=== PATIENT | male | born 1945 | race Caucasian/White ===

== ENCOUNTER 2017-12-18 19:06 | Emergency (ER) | payer MEDICARE, BC ==
[2017-12-18 19:27] LABS: ADD MAN DIFF? NO
[2017-12-18 19:29] LABS: BASO # 0.1 x10^3/uL (0.0-0.2); BASO % 1 % (0-3); EOS # 0.7 x10^3/uL (0.0-0.7); EOS % 9 % (0-3); HEMATOCRIT 42.7 % (39.0-53.0); HEMOGLOBIN 14.5 g/dL (13.0-17.5); LYMPH # 1.3 x10^3/uL (1.0-4.8); LYMPH % 16 % (24-48); MEAN CORPUSCULAR HEMOGLOBIN 29 pg (25-35); MEAN CORPUSCULAR HGB CONC 34 g/dL (31-37); MEAN CORPUSCULAR VOLUME 86 fL (79-100); MONO % 12 % (0-9); NEUT # 5.3 x10^3uL (1.8-7.7); NEUT % 63 % (31-73); PLATELET COUNT 246 x10^3/uL (140-400); RED BLOOD COUNT 4.99 x10^6/uL (4.30-5.70); RED CELL DISTRIBUTION WIDTH 14.7 % (11.5-14.5); WHITE BLOOD COUNT 8.3 x10^3/uL (4.0-11.0)
[2017-12-18 19:45] LABS: ANION GAP 10 (6-14); BLOOD UREA NITROGEN 13 mg/dL (8-26); BUN/CREATININE RATIO 12 (6-20); CALCIUM 8.8 mg/dL (8.5-10.1); CARBON DIOXIDE 25 mmol/L (21-32); CHLORIDE 101 mmol/L (98-107); CREATININE 1.1 mg/dL (0.7-1.3); GFR 65.8; GLUCOSE 118 mg/dL (70-99); POTASSIUM 4.1 mmol/L (3.5-5.1); SODIUM 136 mmol/L (136-145)
[2017-12-18 19:49] LABS: ALBUMIN 3.6 g/dL (3.4-5.0); ALBUMIN/GLOBULIN RATIO 0.8 (1.0-1.7); ALK PHOS 100 U/L (46-116); ALT (SGPT) 19 U/L (16-63); AST (SGOT) 18 U/L (15-37); TOTAL BILIRUBIN 0.5 mg/dL (0.2-1.0)
[2017-12-18 19:50] LABS: TROPONINI < 0.017 ng/mL (0.000-0.055)
[2017-12-18 22:13] LABS: TROPONINI < 0.017 ng/mL (0.000-0.055)
== END 2017-12-18 22:30 | disposition home or self-care (01) ==
LOC: ER 19:06
DX: R07.89 Other chest pain (principal); I25.10 Atherosclerotic heart disease of native coronary artery without angina pectoris; Z95.5 Presence of coronary angioplasty implant and graft
CPT/HCPCS: 36415; 71045; 80053; 84484; 85025; 93005; 99285-25

== ENCOUNTER 2018-07-03 20:28 | Emergency (ER) | payer MEDICARE, BC ==
[~2018-07-03] VITALS: Ht 188 cm; Wt 99.8 kg
--- NOTE | 2018-07-03 21:51 | EKG ---
[facility] [address] [place] [address] Test Date: 2018-07-03 Test Time: 20:36:13 Pat Name: TITI LANGE Department: Room: Gender: M Public Information Officer: ASNTOS : 1945 Requested By: SAMI TOVAR Order Number: [id number] Reading MD: Measurements Intervals [place] Rate: 64 P: -159 [place]: 154 QRS: -26 QRSD: 110 T: 27 QT: 414 QTc: 427 Interpretive Statements SINUS RHYTHM LEFTWARD AXIS R-S TRANSITION ZONE IN V LEADS DISPLACED TO THE LEFT OTHERWISE NORMAL ECG RI6.01 No previous ECG available for comparison
--- NOTE | 2018-07-03 22:04 | RAD ---
AP chest. HISTORY: Chest pain AP view was taken of the chest. There is a large hiatus hernia. Heart is upper normal in size. There is no pleural effusion. There are no confluent infiltrates. There is been little change from an old study. IMPRESSION: 1. Large hiatus hernia. 2. No acute infiltrates. Electronically signed by: Todd Osman MD (07/03/2018 10:00 PM) [facility]
[2018-07-03 22:09] LABS: BASO % 1 % (0-3); EOS # 0.5 x10^3/uL (0.0-0.7); EOS % 11 % (0-3); HEMATOCRIT 41.2 % (39.0-53.0); HEMOGLOBIN 14.2 g/dL (13.0-17.5); LYMPH # 0.7 x10^3/uL (1.0-4.8); LYMPH % 13 % (24-48); MEAN CORPUSCULAR HEMOGLOBIN 30 pg (25-35); MEAN CORPUSCULAR HGB CONC 35 g/dL (31-37); MEAN CORPUSCULAR VOLUME 88 fL (79-100); MONO # 0.4 x10^3/uL (0.0-1.1); MONO % 8 % (0-9); NEUT # 3.2 x10^3uL (1.8-7.7); NEUT % 66 % (31-73); PLATELET COUNT 239 x10^3/uL (140-400); RED CELL DISTRIBUTION WIDTH 15.2 % (11.5-14.5); WHITE BLOOD COUNT 4.9 x10^3/uL (4.0-11.0)
[2018-07-03 22:23] LABS: CALCIUM 8.7 mg/dL (8.5-10.1); CREATININE 1.1 mg/dL (0.7-1.3); GFR 65.8; POTASSIUM 4.1 mmol/L (3.5-5.1)
[2018-07-03 22:28] LABS: ALBUMIN 3.6 g/dL (3.4-5.0); ALBUMIN/GLOBULIN RATIO 1.1 (1.0-1.7); TOTAL BILIRUBIN 0.5 mg/dL (0.2-1.0); TOTAL PROTEIN 6.9 g/dL (6.4-8.2)
--- NOTE | 2018-07-03 22:40 | PHYS DOC ---
Past Medical History Past Medical History: CAD, High Cholesterol Past Surgical History: Knee Replacement, Other Additional Past Surgical Histo: cardiac stents X3 Alcohol Use: Heavy Additional Information: GLASS OF WINE PER DAY Drug Use: None Adult General Chief Complaint Chief Complaint: CHEST PAIN HPI HPI Patient is a 72-year-old male who presents with report that he was having chest pain earlier this evening. Patient had been eating dinner at about 6:00 PM after which she had developed some burning in his lower chest. He states that he had taken an aspirin prior to arrival and the pain had lasted approximately an hour and a half. He denies any pain currently. He states that he had no shortness of breath, nausea, vomiting or diaphoresis. Pain is currently a 0 and at its worse it was a 5 out of 10. He describes the pain as a burning pain and states that he was wondering if it was just heartburn. He does indicate that he has a cardiac history with a history of 3 cardiac stents. He states that he had a similar episode several months back and had a cardiac workup which had returned normal. His services host is Dr. Mathis. Review of Systems Review of Systems Constitutional: Denies fever or chills [] Respiratory: Denies cough or shortness of breath [] Cardiovascular: Complains of burning pain to lower chest[] GI: Denies abdominal pain, nausea, vomiting or diarrhea [] Musculoskeletal: Denies back pain or joint pain [] All other systems were reviewed and found to be within normal limits, except as documented in this note. Allergies Allergies Allergies Coded Allergies Type Severity Reaction Last Updated Verified No Known Drug Allergies 12/18/17 No Physical Exam Physical Exam Constitutional: Well developed, well nourished, no acute distress, non-toxic appearance. [] HENT: Normocephalic, atraumatic, bilateral external ears normal, oropharynx moist, no oral exudates, nose normal. [] Eyes: PERRLA, EOMI, conjunctiva normal, no discharge. [] Neck: Normal range of motion, no tenderness, supple, no stridor. [] Cardiovascular:Heart rate regular rhythm, no murmur [] Lungs & Thorax: Bilateral breath sounds clear to auscultation [] Abdomen: Bowel sounds normal, soft, no tenderness. [] Skin: Warm, dry, no erythema, no rash. [] Extremities: No tenderness, no cyanosis, no clubbing, ROM intact, no edema. [] Neurologic: Alert and oriented X 3, normal motor function, normal sensory function, no focal deficits noted. [] Current Patient Data Vital Signs Vital Signs Date Time Temp Pulse Resp B/P (MAP) Pulse Ox O2 Delivery O2 Flow Rate FiO2 07/03/18 20:45 98.6 64 18 122/75 (91) 94 Room Air 98.6 Lab Values Laboratory Tests Test 07/03/18 21:45 White Blood Count 4.9 x10^3/uL (4.0-11.0) Red Blood Count 4.70 x10^6/uL (4.30-5.70) Hemoglobin 14.2 g/dL (13.0-17.5) Hematocrit 41.2 % (39.0-53.0) Mean Corpuscular Volume 88 fL (79-100) Mean Corpuscular Hemoglobin 30 pg (25-35) Mean Corpuscular Hemoglobin Concent 35 g/dL (31-37) Red Cell Distribution Width 15.2 % (11.5-14.5) H Platelet Count 239 x10^3/uL (140-400) Neutrophils (%) (Auto) 66 % (31-73) Lymphocytes (%) (Auto) 13 % (24-48) L Monocytes (%) (Auto) 8 % (0-9) Eosinophils (%) (Auto) 11 % (0-3) H Basophils (%) (Auto) 1 % (0-3) Neutrophils # (Auto) 3.2 x10^3uL (1.8-7.7) Lymphocytes # (Auto) 0.7 x10^3/uL (1.0-4.8) L Monocytes # (Auto) 0.4 x10^3/uL (0.0-1.1) Eosinophils # (Auto) 0.5 x10^3/uL (0.0-0.7) Basophils # (Auto) 0.0 x10^3/uL (0.0-0.2) Sodium Level 137 mmol/L (136-145) Potassium Level 4.1 mmol/L (3.5-5.1) Chloride Level 105 mmol/L (98-107) Carbon Dioxide Level 26 mmol/L (21-32) Anion Gap 6 (6-14) Blood Urea Nitrogen 14 mg/dL (8-26) Creatinine 1.1 mg/dL (0.7-1.3) Estimated GFR (Cockcroft-Gault) 65.8 BUN/Creatinine Ratio 13 (6-20) Glucose Level 146 mg/dL (70-99) H Calcium Level 8.7 mg/dL (8.5-10.1) Magnesium Level 2.0 mg/dL (1.8-2.4) Total Bilirubin 0.5 mg/dL (0.2-1.0) Aspartate Amino Transferase (AST) 16 U/L (15-37) Alanine Aminotransferase (ALT) 23 U/L (16-63) Alkaline Phosphatase 83 U/L (46-116) Troponin I Quantitative < 0.017 ng/mL (0.000-0.055) Total Protein 6.9 g/dL (6.4-8.2) Albumin 3.6 g/dL (3.4-5.0) Albumin/Globulin Ratio 1.1 (1.0-1.7) Lipase 112 U/L (73-393) Laboratory Tests 07/03/18 21:45 Laboratory Tests 07/03/18 21:45 EKG EKG [] Interpretation Time: EKG demonstrates a normal sinus rhythm with rate of 64. Radiology/Procedures Radiology/Procedures [] Impressions: Chest x-ray demonstrates no acute process. There is a large hiatal hernia. Course & Med Decision Making Course & Med Decision Making Pertinent Labs and Imaging studies reviewed. (See chart for details) [] Dragon Disclaimer Dragon Disclaimer This electronic medical record was generated, in whole or in part, using a voice recognition dictation system. Departure Departure Impression: Primary Impression: GERD (gastroesophageal reflux disease) Disposition: 01 HOME, SELF-CARE Condition: STABLE Referrals: DAVID VIGIL MD (PCP) Patient Instructions: Heartburn, Hiatal Hernia Additional Instructions: Follow-up with Dr. Mathis in the next 3-5 days. Problem Qualifiers Primary Impression: GERD (gastroesophageal reflux disease) Esophagitis presence: esophagitis presence not specified Qualified Codes: K21.9 - Gastro-esophageal reflux disease without esophagitis SAMI TOVAR Jr. DO Jul 03, 2018 22:40
[2018-07-03 22:53] VITALS: BP 109/74
== END 2018-07-03 22:54 | disposition home or self-care (01) ==
LOC: ER 20:28
DX: K21.9 Gastro-esophageal reflux disease without esophagitis (principal); E78.00 Pure hypercholesterolemia, unspecified; I25.10 Atherosclerotic heart disease of native coronary artery without angina pectoris; F10.20 Alcohol dependence, uncomplicated; Y90.9 Presence of alcohol in blood, level not specified
CPT/HCPCS: 36415; 71045; 80053; 83690; 83735; 84484; 85025; 93005; 99285-25

== ENCOUNTER → 2019-05-27 | Day surgery (SDC) | payer MEDICARE, BC ==
[~2019-05-27] MED LIST: ASPI81TA50 PO; CARV3.12 PO; ENAL20TA4 PO; IV RINGERS,LACTATED 1000ML 1,000 ML IV SCH; LIDOCAINE 1% PF 2 ML VIAL. ID PRN; LIDOCAINE 2% PF 5 ML VIAL. ONE; MIDAZOLAM HCL/PF 2 MG/2 ML VIAL. IV PRN; OMEG-57 PO; OMEP40CA5 PO; PROPOFOL 20 ML IV ONE; SIMV40TA PO; TAMS0.4C97 PO; fentaNYL PF VIAL 100 MCG/2 ML VIAL IV PRN
[2019-05-27 11:50] VITALS: BP 109/72
== END ==
LOC: ENDOS 10:28
PROVIDERS: ATTEND Internal Medicine Gastroenterology
DX: K22.2 Esophageal obstruction (principal); K44.9 Diaphragmatic hernia without obstruction or gangrene; I25.2 Old myocardial infarction; I25.10 Atherosclerotic heart disease of native coronary artery without angina pectoris; K21.9 Gastro-esophageal reflux disease without esophagitis; D64.9 Anemia, unspecified; I50.9 Heart failure, unspecified; E78.5 Hyperlipidemia, unspecified; F15.90 Other stimulant use, unspecified, uncomplicated; F17.210 Nicotine dependence, cigarettes, uncomplicated; Z72.89 Other problems related to lifestyle; Z79.82 Long term (current) use of aspirin
CPT/HCPCS: 43235; 43450; J2001; J2704

== ENCOUNTER → 2019-06-08 | Outpatient (CLI) | payer MEDICARE, BC ==
[2019-05-27 11:50] VITALS: BP 109/72
[~2019-06-08] MED LIST changes: +BARIUM SULFATE 340 GM SUSPENSION. PO ONE; +BARIUM SULFATE 60% 355 ML SUSP PO ONE; -IV RINGERS,LACTATED 1000ML 1,000 ML IV SCH; -LIDOCAINE 1% PF 2 ML VIAL. ID PRN; -LIDOCAINE 2% PF 5 ML VIAL. ONE; -MIDAZOLAM HCL/PF 2 MG/2 ML VIAL. IV PRN; -PROPOFOL 20 ML IV ONE; +SIMETHICONE/SOD BICARB/CITRIC ACID PACKET. PO ONE; +[UNRECOGNIZED DRUG - OTHER] PO ONE; -fentaNYL PF VIAL 100 MCG/2 ML VIAL IV PRN
--- NOTE | 2019-06-08 10:34 | RAD ---
Indication: Dysphagia. Feels like food is getting stuck. TECHNIQUE: Double contrast upper GI study with 2.5 minutes of fluoroscopy time. Effervescent granules were used. Multiple images were taken. COMPARISON: None IMPRESSION: The presentation manager images demonstrate clear lungs. Abnormal orientation of the stomach is noted which is partially in the thorax. Prompt opacification of the esophagus with passage of contrast through the GE junction is seen. There is herniation of the entire stomach into the thorax with abnormal orientation. Passage of contrast was seen into the duodenum. IMPRESSION: Large hiatal hernia containing entire stomach with abnormal orientation of stomach suggesting gastric volvulus. No real-time evidence of gastric outlet obstruction. Surgical consultation recommended. Electronically signed by: Jose Elias Cazares DO (06/08/2019 10:31 AM) [facility]
== END | disposition home or self-care (01) ==
LOC: RAD 08:53
PROVIDERS: ATTEND Internal Medicine Gastroenterology
DX: K44.9 Diaphragmatic hernia without obstruction or gangrene (principal); K22.8 Other specified diseases of esophagus
CPT/HCPCS: 74240

== ENCOUNTER → 2019-06-16 | Outpatient (CLI) | payer MEDICARE, BC ==
[2018-07-03 22:53] VITALS: BP_SYST 109
[2019-05-27 11:50] VITALS: BP_DIAS 72
[~2019-06-16] MED LIST changes: -BARIUM SULFATE 340 GM SUSPENSION. PO ONE; -BARIUM SULFATE 60% 355 ML SUSP PO ONE; -SIMETHICONE/SOD BICARB/CITRIC ACID PACKET. PO ONE; -[UNRECOGNIZED DRUG - OTHER] PO ONE
--- NOTE | 2019-06-16 09:43 | CARD ---
MR#: [id number] Date of Study: 06/16/2019 Ordering Physician: PEDRO IGLESIAS, Referring Physician: PEDRO IGLESIAS, Tech: Noemi Buckley BERYL APPROVED REPORT EXAM: Two-dimensional and M-mode echocardiogram with Doppler and color Doppler. Other Information Quality : AverageHR: 55bpm Rhythm : Bradycardia INDICATION CAD 2D DIMENSIONS RVDd3.4 (2.9-3.5cm)Left Atrium(2D)4.4 (1.6-4.0cm) IVSd1.2 (0.7-1.1cm)Aortic Root(2D)3.6 (2.0-3.7cm) LVDd4.4 (3.9-5.9cm)LVOT Diameter2.5 (1.8-2.4cm) PWd1.0 (0.7-1.1cm)LVDs3.0 (2.5-4.0cm) FS (%) 31.6 %SV52.4 ml LVEF(%)59.8 (>50%) M-Mode DIMENSIONS Left Atrium(MM)4.52 (2.5-4.0cm)Aortic Root3.59 (2.2-3.7cm) Aortic Valve AoV Peak Justino.144.8cm/sAoV VTI30.9cm AO Peak GR.8.4mmHgLVOT Peak Justino.107.3cm/s AO Mean GR.5mmHgAVA (VMAX)3.73cm2 IVANNA (VTI)3.70cm2 Mitral Valve MV E Eiupnvqx11.9cm/sMV DECEL [id number] MV A Bgwerqbq76.2cm/sE/A Ratio0.9 Pulmonary Valve PV Peak Wkxauoyx29.9cm/s Tricuspid Valve TR P. Saoqeexz351fb/sRAP OLUNYHQW5zkVv TR Peak Gr.00seSaBTER82veZv Pulmonary Vein S1 Gbmkiftb74.0cm/sD2 Fanhemft19.1cm/s PVa [id number] LEFT VENTRICLE The left ventricle is normal size. Proximal septal thickening is noted. The left ventricular systolic function is normal and the ejection fraction is within normal range. The Ejection Fraction is 55-60% . There is normal LV segmental wall motion. Transmitral Doppler flow pattern is Grade I-abnormal rela xation pattern. RIGHT VENTRICLE The right ventricle is normal size. There is normal right ventricular wall thickness. The right ventr icular systolic function is normal. ATRIA The left atrium is mildly dilated. The right atrium is mildly dilated. The interatrial septum is inta ct with no evidence for an atrial septal defect or patent foramen ovale as noted on 2-D or Doppler im aging. AORTIC VALVE The aortic valve is trileaflet. The aortic valve is mildly thickened but opens well. Doppler and [place] r Flow revealed trace aortic regurgitation. There is no significant aortic valvular stenosis. There i s no aortic valvular vegetation. MITRAL VALVE The mitral valve is normal in structure and function. There is no evidence of mitral valve prolapse. There is no mitral valve stenosis. Doppler and Color Flow revealed no mitral valve regurgitation note d. TRICUSPID VALVE The tricuspid valve is normal in structure and function. Doppler and Color Flow revealed trace tricus pid regurgitation. The PA pressure was estimated at 24 mmHg. There is no tricuspid valve prolapse or vegetation. There is no tricuspid valve stenosis. PULMONIC VALVE Doppler and Color Flow revealed no pulmonic valvular regurgitation. There is no pulmonic valvular serafin nosis. GREAT VESSELS The aortic root is normal in size. The ascending aorta is normal in size. The IVC is normal in size a nd collapses >50% with inspiration. PERICARDIAL EFFUSION There is no evidence of significant pericardial effusion. Critical Notification Critical Value: No <Conclusion> The left ventricular systolic function is normal and the ejection fraction is within normal range. Th e Ejection Fraction is 55-60%. There is normal LV segmental wall motion. Signed by : Kurt Mackey, Electronically Approved : 06/16/2019 09:43:18
== END | disposition home or self-care (01) ==
LOC: ECHO 08:54
PROVIDERS: ATTEND Internal Medicine Cardiovascular Disease
DX: I25.10 Atherosclerotic heart disease of native coronary artery without angina pectoris (principal)
CPT/HCPCS: 93306

== ENCOUNTER 2019-08-03 05:59 | Inpatient (IN) | payer MEDICARE, BC ==
[2019-08-03] VITALS (12 sets, daily range): BP systolic 116–144; BP diastolic 67–89
[~2019-08-03] VITALS: Ht 188 cm; Wt 103.4 kg
[~2019-08-03 05:59] MED LIST changes: +BUPIVACAINE-EPI 0.5%-1:200000 MPF 30 ML VIAL. INJ ONE; +ENAL2.5T PO
[2019-08-03] MEDS ORDERED: DEXAMETHASONE SOD PHOS 4 MG/ML VIAL ONE (06:16)
[2019-08-03] MEDS ORDERED: PROPOFOL 20 ML IV ONE (06:16)
[2019-08-03] MEDS ORDERED: LIDOCAINE 2% PF 5 ML VIAL. ONE (06:16)
[2019-08-03] MEDS ORDERED: ROCURONIUM 50 MG/5 ML VIAL. ONE ×2 (06:16→08:53)
[2019-08-03] MEDS ORDERED: ONDANSETRON PF 4 MG/2 ML VIAL. ONE (06:16)
[2019-08-03] MEDS ORDERED: DEXAMETHASONE SOD PHOS 20 MG/5 ML VIAL. ONE (06:16)
[2019-08-03] MEDS ORDERED: BUPIVACAINE-EPI 0.5%-1:200000 MPF 30 ML VIAL. INJ ONE (06:30)
[2019-08-03] MEDS ORDERED: LIDOCAINE 1% PF 2 ML VIAL. ID PRN (07:00)
[2019-08-03] MEDS ORDERED: IV RINGERS,LACTATED 1000ML 1,000 ML IV SCH (07:00)
[2019-08-03] MEDS ORDERED: fentaNYL PF VIAL 100 MCG/2 ML VIAL IV PRN ×2 (07:00)
[2019-08-03] MEDS ORDERED: ONDANSETRON PF 4 MG/2 ML VIAL. IV PRN ×2 (07:00→11:15)
[2019-08-03] MEDS ORDERED: HYDROmorphone 2 MG/ML VIAL IV PRN ×2 (07:00→11:15)
[2019-08-03] MEDS ORDERED: MORPHINE SULFATE 2 MG/ML VIAL. IV PRN (07:00)
[2019-08-03] MEDS ORDERED: PROCHLORPERAZINE 10 MG/2 ML VIAL. IV PRN (07:00)
[2019-08-03] MEDS ORDERED: SURGICEL HEMOSTAT 4X8 EACH. ONE (07:01)
[2019-08-03] MEDS ORDERED: fentaNYL PF VIAL 100 MCG/2 ML VIAL ONE ×3 (07:13→10:43)
[2019-08-03] MEDS ORDERED: SUCCINYLCHOLINE 200 MG/10 ML VIAL. ONE (07:16)
[2019-08-03] MEDS ORDERED: ceFAZolin 2GM PREMIX 2 GM/50 ML BAG IV ONE (08:00)
[2019-08-03] MEDS ORDERED: SEVOFLURANE > 120 MINUTES. IH ONE (08:17)
[2019-08-03] MEDS ORDERED: GLYCOPYRROLATE 1 MG/5 ML VIAL. ONE (08:28)
[2019-08-03] MEDS ORDERED: NEOSTIGMINE METHYLSULFATE 5 MG/5 ML SYRINGE. ONE ×2 (08:31→10:43)
[2019-08-03] MEDS ORDERED: IV NORMAL SALINE 1000ML BAG 1,000 ML IV SCH (11:10)
--- NOTE | 2019-08-03 11:10 | PDOC4 ---
Operative Note Operative Note Operative Note Preoperative Diagnosis: Large hiatal hernia with gastroesophageal reflux disease Postoperative Diagnosis: Same Procedure: Laparoscopic repair of large hiatal hernia with Janell fundoplication Surgeon: Juarez Conroy.: Dr. Greenfield Anesthesia: Gen. Estimated Blood Loss: 20 mL Specimen: Hernia sac to pathology Drains: None Complications: None Indications: The patient is a 73-year-old male who was referred following a GI evaluation for problems with eating. The evaluation identified a very large hiatal hernia with some concern for intermittent volvulus. He was referred for surgical repair. The risks of surgery were discussed which include bleeding, infection, recurrent herniation, gastric or esophageal perforation, visceral injury, recurrent reflux, gas bloat syndrome, dysphasia, potential need for additional surgeries or procedures. He understands and would like to proceed. Description: The patient was taken to the operating room and placed supine on the operating table. General anesthesia was performed. The patient was then placed in lithotomy. The abdomen was prepped with ChloraPrep and draped in a standard surgical fashion. A small incision was made superior to and to the patient's left of the umbilicus through which a visualized 5 mm trocar was inserted. A pneumoperitoneum was then created and the laparoscope was introduced. In the right lateral abdomen a 12 mm trocar was inserted through which a soft fan retractor was used to elevate the left lobe of the liver. In the right upper quadrant a 5 mm trocar was inserted. In the left upper quadrant an 11 mm trocar was inserted while in the left lateral abdomen a 5 mm trocar was inserted. Attention was then directed to the diaphragmatic hiatus. As expected there was a very large hiatal hernia defect with much of the stomach present in the chest. A large amount of stomach and omentum was pulled out of the chest and able to be reduced. We then began mobilizing the entire hernia sac within the mediastinum. We started this on the right side and began freeing up the sac from the right gisele. The Harmonic scalpel assisted for much of this dissection. We continued mobilizing the sac superiorly well into the mediastinum. We continued this dissection anteriorly freeing up the sac and its attachments in this location. The dissection then continued along the left gisele and the sac and attachments were mobilized here as well. Due to the large size and redundancy of the sac considerable time was required in freeing this out of the mediastinum. Portions of the redundant sac were also fully excised and sent off to pathology as a specimen. The gastrocolic omentum was then opened with the Harmonic scalpel in the upper portion of the greater curvature. We then freed up the upper part of the greater curvature and fundus using the harmonic scalpel. Large blood vessels were doubly clipped and divided. The dissection continued all the way back up to the left gisele and any remaining splenic attachments were also mobilized. At this point the esophagus was readily visualized and we were able to free up the area around his gastroesophageal junction. A [place] drain was then placed around the esophagus at the GE junction and clips were applied holding the [place] in place. With retraction on the Misha we were able to continue freeing up any remaining sac attachments particularly in the posterior location. At this point the GE junction was well within the abdominal cavity. The left and right gisele were then reapproximated with interrupted 2-0 silk sutures using the Endo Stitch device. Stitches were a pplied both anteriorly and posteriorly allowing for closure of the hernia defect. We elected to reinforce the closure with a Phasix ST mesh patch. The mesh was tailored to provide coverage over the crural repair. The mesh was then introduced and laid up against the diaphragm. Initial fixation sutures were placed at the superior corners of the mesh using 2-0 silk. The entire mesh was then fixed to the crura using the Tisseel fibrin glue. The fundus was then wrapped around in a 360� fashion creating the fundoplication. A shoeshine maneuver was used to ensure no twists or kinks. An initial 2-0 Ethibond suture was used securing the fundic lips together. Another suture was placed superior to this which incorporated a small bite of the anterior esophagus. An additional suture was then placed inferiorly completing the fundoplication. At this point hemostasis was good, the hernia was well repaired with good coverage from the mesh, and the fundoplication was intact with a nice orientation. The 11 and 12 mm trochars were then removed and the fascia closed with 0 Vicryl using an Endo Close. The remaining ports were removed and the pneumoperitoneum was relieved. Skin at all incisions was closed with 4-0 Monocryl. Steri-Strips and dressings were applied. The patient tolerated the procedure well. AMINATA COLON MD Aug 03, 2019 11:10
[2019-08-03] MEDS ORDERED: 0.9 % SODIUM CHLORIDE 10 ML DISP.SYRIN. IV PRN (11:15)
[2019-08-03] MEDS ORDERED: NALOXONE 0.4 MG/ML VIAL. IV PRN (11:15)
[2019-08-03] MEDS ORDERED: ASPIRIN ENTERIC COATED 81 MG TABLET.DR. PO SCH (12:00)
[2019-08-03] MEDS ORDERED: TAMSULOSIN 0.4 MG CAP.ER.24H. PO SCH (12:00)
[2019-08-03] MEDS: CARVEDILOL 3.125 MG TABLET. PO SCH ×2 (12:00→16:35)
[2019-08-03] MEDS: LISINOPRIL 5 MG TABLET. PO SCH (12:42)
[2019-08-03] MEDS: IV 1/2 NORMAL SALINE 1,000 ML IV SCH ×2 (12:47→20:47)
[2019-08-03] MEDS ORDERED: HYDROmorphone 2 MG/ML VIAL IVP PRN ×2 (13:45)
[2019-08-03] MEDS: HYDROmorphone 2 MG/ML VIAL IVP PRN ×2 (14:19→22:31)
[2019-08-03] MEDS: TAMSULOSIN 0.4 MG CAP.ER.24H. PO SCH (20:47)
[2019-08-03] MEDS: SIMVASTATIN 40 MG TABLET. PO SCH (20:47)
[2019-08-03] MEDS: ASPIRIN ENTERIC COATED 81 MG TABLET.DR. PO SCH (20:47)
[2019-08-04 03:00] VITALS: BP 128/71
[2019-08-04] MEDS: HYDROmorphone 2 MG/ML VIAL IVP PRN ×2 (06:48→21:09)
[2019-08-04] MEDS: IV 1/2 NORMAL SALINE 1,000 ML IV SCH ×2 (06:49→15:53)
[2019-08-04 07:00] VITALS: BP 107/69
[2019-08-04] MEDS: LISINOPRIL 5 MG TABLET. PO SCH (07:33)
[2019-08-04] MEDS: CARVEDILOL 3.125 MG TABLET. PO SCH ×2 (07:33→15:54)
[2019-08-04 09:18] LABS: CALCIUM 8.5 mg/dL (8.5-10.1); CREATININE 1.2 mg/dL (0.7-1.3); GFR 59.3; POTASSIUM 4.3 mmol/L (3.5-5.1)
[2019-08-04 11:00] VITALS: BP 122/70
--- NOTE | 2019-08-04 12:17 | PDOC ---
ANUJ LAWTON IS ARCHITECT 08/04/19 1217: SURGICAL PROGRESS NOTE Subjective no reflux pain managed urinating Vital Signs Vital Signs Date Time Temp Pulse Resp B/P (MAP) Pulse Ox O2 Delivery O2 Flow Rate FiO2 08/04/19 11:00 98.0 77 18 122/70 (87) 91 Room Air 98.0 08/04/19 06:49 10.0 I&O Intake and Output 08/04/19 06:59 Intake Total 1460 ml Output Total 195 ml Balance 1265 ml Intake Oral 110 ml IV Total 1350 ml Output Urine Total 175 ml Estimated Blood Loss 20 ml # Voids 4 General: Alert, Oriented X3, Cooperative, No acute distress Abdomen: Soft, Other (lap dressings dry) Labs Laboratory Tests Test 08/04/19 08:20 Sodium Level 138 mmol/L (136-145) Potassium Level 4.3 mmol/L (3.5-5.1) Chloride Level 102 mmol/L (98-107) Carbon Dioxide Level 28 mmol/L (21-32) Anion Gap 8 (6-14) Blood Urea Nitrogen 17 mg/dL (8-26) Creatinine 1.2 mg/dL (0.7-1.3) Estimated GFR (Cockcroft-Gault) 59.3 Glucose Level 106 mg/dL (70-99) Calcium Level 8.5 mg/dL (8.5-10.1) Laboratory Tests Test 08/04/19 08:20 Sodium Level 138 mmol/L (136-145) Potassium Level 4.3 mmol/L (3.5-5.1) Chloride Level 102 mmol/L (98-107) Carbon Dioxide Level 28 mmol/L (21-32) Anion Gap 8 (6-14) Blood Urea Nitrogen 17 mg/dL (8-26) Creatinine 1.2 mg/dL (0.7-1.3) Estimated GFR (Cockcroft-Gault) 59.3 Glucose Level 106 mg/dL (70-99) Calcium Level 8.5 mg/dL (8.5-10.1) Assessment/Plan s/p ruma fundoplication start clears, oral meds AMINATA COLON MD 08/04/19 123: SURGICAL PROGRESS NOTE Assessment/Plan Agree with above ANUJ LAWTON APRN Aug 04, 2019 12:17 AMINATA COLON MD Aug 04, 2019 12:35
[2019-08-04] MEDS: HYDROcodon/APAP 7.5/325MG ORAL 15 ML SOLUTION PO PRN ×2 (12:23→17:55)
[2019-08-04 15:00] VITALS: BP 127/79
--- NOTE | 2019-08-04 16:13 | NUR ---
SS following for discharge planning. SS reviewed pt chart. Pt is from home with spouse and is currently on room air. PT recommending home at discharge. No discharge needs noted at this time. SS will continue to follow for discharge planning.
--- NOTE | 2019-08-04 18:06 | PATHOLOGY ---
[facility] Accession Number: [id number] . 01 Material submitted: . hernia - HERNIA SAC . 01 Clinical history: . Hiatal hernia . 02 Diagnosis: Segments of focal mesothelial-lined fibromembranous and fibroadipose and skeletal muscle tissue, hiatal hernia repair: - Hernia tissue showing focal congestion and recent hemorrhage. 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 02 Electronically signed: . Magne Snyder MD, Pathologist NPI- [id number] . 01 Gross description: . The specimen is received in formalin, labeled "Anil Florence, hernia sac", are several fibromembranous and fibroadipose segments, few covered with hemorrhage and ranging from 5.3 cm up to 10.5 cm in greatest dimension and measuring 10.5 x 5.0 x 2.2 cm in aggregate. No discrete nodules or masses identified. Representatively submitted in A1. ([facility]; 08/03/2019) [facility] 08/03/20196 Local . 02 Pathologist provided ICD-10: K44.9 . 02 CPT . 670308 Specimen Comment: A courtesy copy of this report has been sent to Specimen Comment: [phone], . Specimen Comment: Report sent to / DR VIGIL Performed at: [address], [place] [id number] MD Ulises Rodriguez MD Phone: [phone] Performed at: 02 [facility] [address] [place], [place] [id number] MD Magen Snyder MD Phone: [phone]
[2019-08-04 19:00] VITALS: BP 144/80
[2019-08-04] MEDS: TAMSULOSIN 0.4 MG CAP.ER.24H. PO SCH (21:08)
[2019-08-04] MEDS: ASPIRIN ENTERIC COATED 81 MG TABLET.DR. PO SCH (21:08)
[2019-08-04] MEDS: SIMVASTATIN 40 MG TABLET. PO SCH (21:08)
[2019-08-04 23:00] VITALS: BP 149/91
[2019-08-05] MEDS: HYDROcodon/APAP 7.5/325MG ORAL 15 ML SOLUTION PO PRN ×3 (00:01→11:54)
[2019-08-05] MEDS: IV 1/2 NORMAL SALINE 1,000 ML IV SCH (01:37)
[2019-08-05 03:00] VITALS: BP 152/82
[2019-08-05 07:00] VITALS: BP 117/69
[2019-08-05] MEDS: CARVEDILOL 3.125 MG TABLET. PO SCH (08:18)
[2019-08-05] MEDS: LISINOPRIL 5 MG TABLET. PO SCH (08:18)
[2019-08-05] MEDS ORDERED: HYDR15SO6 PO (09:24)
--- NOTE | 2019-08-05 09:26 | DISCH ---
DISCHARGE INSTRUCTIONS Condition on Discharge Condition on Discharge: Stable Activity After Discharge Activity Instructions for Disc: Activity as tolerated Other activity instructions: No lifting > 20 lbs x 2 weeks Bathing Instructions: No Tub Bath until see (x 2 weeks ) Lifting Instructions after Dis: No heavy lifting Driving Instructions after Dis: Do not drive (while taking narcotics ) Diet after Discharge Diet after Discharge: Full Liquid (x 2 weeks ) Wound Incision Care Wound/Incision Care: May get incision wet, No wound care needed Contacting the after DC Call your doctor for: Concerns you may have Follow-Up Follow up with: Dr Pizarro 2 weeks, call to schedule [phone] ANUJ LAWTON APRN Aug 05, 2019 09:26
--- NOTE | 2019-08-05 09:27 | PDOC ---
ANUJ LAWTON BARROW WORKER 08/05/19 0927: SURGICAL PROGRESS NOTE Subjective tolerating clears, no reflux symptoms pain managed ambulating Vital Signs Vital Signs Date Time Temp Pulse Resp B/P (MAP) Pulse Ox O2 Delivery O2 Flow Rate FiO2 08/05/19 08:18 84 117/69 08/05/19 07:25 16 Room Air 08/05/19 07:00 98.2 92 98.2 I&O Intake and Output 08/05/19 06:59 Intake Total 770 ml Output Total 850 ml Balance -80 ml Intake Oral 770 ml Output Urine Total 850 ml # Voids 1 General: Alert, Oriented X3, Cooperative, No acute distress Abdomen: Soft, Other (ND, lap dressings dry) Labs Laboratory Tests Test 08/04/19 08:20 Sodium Level 138 mmol/L (136-145) Potassium Level 4.3 mmol/L (3.5-5.1) Chloride Level 102 mmol/L (98-107) Carbon Dioxide Level 28 mmol/L (21-32) Anion Gap 8 (6-14) Blood Urea Nitrogen 17 mg/dL (8-26) Creatinine 1.2 mg/dL (0.7-1.3) Estimated GFR (Cockcroft-Gault) 59.3 Glucose Level 106 mg/dL (70-99) Calcium Level 8.5 mg/dL (8.5-10.1) Problem List s/p ruma fundoplication dc home [place] diet x 2 weeks script on chart AMINATA COLON MD 08/05/19 1403: SURGICAL PROGRESS NOTE Assessment/Plan Agree with above ANUJ LAWTON APRN Aug 05, 2019 09:27 AMINATA COLON MD Aug 05, 2019 14:03
--- NOTE | 2019-08-05 09:29 | PDOC3 ---
Discharge Summary Visit Information Date of Admission: Aug 03, 2019 Date of Discharge: Aug 05, 2019 Admitting Diagnosis: Large hiatal hernia with gastroesophageal reflux disease Final Diagnosis Large hiatal hernia with gastroesophageal reflux disease Brief Hospital Course Allergies Allergies Coded Allergies Type Severity Reaction Last Updated Verified No Known Drug Allergies 08/03/19 No Vital Signs Vital Signs Date Time Temp Pulse Resp B/P (MAP) Pulse Ox O2 Delivery O2 Flow Rate FiO2 08/05/19 08:18 84 117/69 08/05/19 07:25 16 Room Air 08/05/19 07:00 98.2 92 98.2 Lab Results Laboratory Tests Test 08/04/19 08:20 Sodium Level 138 mmol/L (136-145) Potassium Level 4.3 mmol/L (3.5-5.1) Chloride Level 102 mmol/L (98-107) Carbon Dioxide Level 28 mmol/L (21-32) Anion Gap 8 (6-14) Blood Urea Nitrogen 17 mg/dL (8-26) Creatinine 1.2 mg/dL (0.7-1.3) Estimated GFR (Cockcroft-Gault) 59.3 Glucose Level 106 mg/dL (70-99) Calcium Level 8.5 mg/dL (8.5-10.1) Brief Hospital Course Mr. Florence is a 73 old male who underwent Laparoscopic repair of large hiatal hernia with Janell fundoplication. Postoperatively no reflux symptoms, tolerating diet, and pain managed. Ready for discharge home Discharge Information Condition at Discharge: Stable Follow Up: Weeks (2) Disposition/Orders: D/C to Home Scheduled Aspirin (Aspir-Low) 81 Mg Tablet.dr, 1 TAB PO DAILY for HEART, #30 Ref 3 (Reported) Entered as Reported by: AMERICO EASTMAN on 05/27/19 1045 Last Taken: Unknown Dose on 07/26/19 Last Action: Continued on 08/03/19 1114 by AMINATA COLON Carvedilol (Coreg ) 3.125 Mg Tablet, 3.125 MG PO BIDWMEALS for CARDIAC, (Reported) Entered as Reported by: AMERICO EASTMAN on 05/27/19 1043 Last Taken: Unknown Dose on 08/03/19 0530 Last Action: Continued on 08/03/19 1114 by AMINATA COLON Enalapril Maleate (Enalapril Maleate) 2.5 Mg Tablet, 2.5 MG PO DAILY for htn, (Reported) Entered as Reported by: GABBY MALONEY on 08/02/19 1240 Last Taken: Unknown Dose on 08/02/19 Last Action: Converted on 08/03/191113 by AMINATA COLON [place]-3S/Dha/Epa/Fish Oil/D3 (Fish Oil + D3 Softgel) 1 Each Capsule, 1 EACH PO DAILY for SUPPLEMENT, (Reported) Entered as Reported by: AMERICO EASTMAN on 05/27/191044 Last Taken: Unknown Dose on 07/26/19 Last Action: HELD on 08/03/191113 by AMINATA COLON Simvastatin (Zocor) 40 Mg Tablet, 1 TAB PO DAILY for CHOLESTEROL, #90 Ref 3 (Reported) Entered as Reported by: AMERICO EASTMAN on 05/27/191044 Last Taken: Unknown Dose on 08/02/19 Last Action: Continued on 08/03/191113 by AMINATA COLON Tamsulosin Hcl (Flomax) 0.4 Mg Cap.er.24h, 1 CAP PO DAILY for bph, #30 Ref 11 (Reported) Entered as Reported by: AMERICO EASTMAN on 05/27/191044 Last Taken: Unknown Dose on 08/02/19 Last Action: Continued on 08/03/191113 by AMINATA COLON Scheduled PRN Hydrocodone Bit/Acetaminophen (Hydrocodone-Apap 7.5-325/15 Soln ) 15 Ml Solution, 15 ML PO PRN Q6HRS PRN for PAIN, #300 Ref 0 Prescribed by: Anuj Dowell on 08/05/19 0924 Discontinued Medications Enalapril Maleate (Vasotec) 20 Mg Tablet, 1 TAB PO BID for HTN, #60 Ref 2 (Reported) Entered as Reported by: AMERICO EASTMAN on 05/27/191044 Last Action: Discontinued on 08/02/19 124 by GABBY MALONEY Omeprazole (Omeprazole) 40 Mg Capsule.dr, 1 CAP PO DAILY for gerd, #30 Ref 3 (Reported) Entered as Reported by: AMERICO EASTMAN on 05/27/191044 Last Taken: Unknown Dose on 08/03/19 0530 Last Action: HELD on 08/03/191113 by AUNJ SUERO APRN Aug 05, 2019 09:29
--- NOTE | 2019-08-05 09:58 | NUR ---
SS following up with discharge planning. PT/OT recommended home with assistance at discharge. Nurse navigator meeting with pt to discuss home healthcare and home healthcare options. SS will continue to follow for discharge planning.
[2019-08-05 11:00] VITALS: BP 98/63
--- NOTE | 2019-08-05 13:54 | NUR ---
Patient ambulatory with steady gait independently. Patient tolerated FLD. Patient refused HH per Queenie OROPEZA. Discharge instructions, medications and prescription reviewed with patient and . They verb. understanding all instructions and deny questions. Patient ready for discharge.
--- NOTE | 2019-08-05 14:05 | NUR ---
Patient discharge to home with with all belongings, instructions and prescription. See previous orders and notes.
== END 2019-08-05 14:09 | disposition home or self-care (01) | DRG 328 ==
LOC: SURG 05:59 → 4 NORTH 11:10
PROVIDERS: ADMIT Surgery; ATTEND Surgery
PROC: 0DV44ZZ Restriction of Esophagogastric Junction, Percutaneous Endoscopic Approach (ICD-10-PCS; 2019-08-03)
PROC: 0BUT4JZ Supplement Diaphragm with Synthetic Substitute, Percutaneous Endoscopic Approach (ICD-10-PCS; principal; 2019-08-03 07:30)
DX: K44.9 Diaphragmatic hernia without obstruction or gangrene (principal); K21.9 Gastro-esophageal reflux disease without esophagitis; Z79.899 Other long term (current) drug therapy; I10 Essential (primary) hypertension; E78.5 Hyperlipidemia, unspecified
CPT/HCPCS: 36415; 80048; A7015; C1781; J0330; J0696; J1100; J1170; J2001; J2405; J2704; J2710; J3010; J3490; J7030; J7120; 97110; 97530; 97535; G0378

== ENCOUNTER → 2019-12-12 | Outpatient (CLI) | payer BC, MEDICARE ==
[~2019-12-12] MED LIST changes: -BUPIVACAINE-EPI 0.5%-1:200000 MPF 30 ML VIAL. INJ ONE; +HYDR15SO6 PO; +OMEP40CA45 PO; -OMEP40CA5 PO
--- NOTE | 2019-12-12 12:31 | RAD ---
MR#: [id number] Date of Study: 12/12/2019 Ordering Physician: PEDRO IGLESIAS, Referring Physician: CHERYL HERRERA Tech: AZALIA Vergara APPROVED REPORT Test Type: Exercise Stress Nurse/Tech: Yvette HAUSER Test Indications: CAD Cardiac History: [place] w/ 3 cardiac stents 10 yrs ago, See EMR. Medications: ASA, See EMR. Medical History: X-Smoker=Quit 30yrs ago, See EMR. Resting ECG: SR Resting Heart Rate: 62 bpm Resting Blood Pressure: 127/77mmHg Pretest Chest Pain: No chest pain Nurse/Tech Notes Lungs CTA, Heart tones regular. Consent: The procedure was explained to the patient in lay terms. Informed consent was witnessed. Lorenzo eout was entered into [facility]. History and Stress Test performed by AZALIA Vergara Stress Symptoms No chest pain or symptoms. POST EXERCISE Reason for Termination: Reached target heart rate Target HR: Yes Max HR: 124 bpm 100% of Maximum Predicted HR: 124 bpm Exercise duration: 08:25 min:sec, 3 Stage Exercise capacity: 10METs Max Blood Pressure: 174/84mmHg Blood Pressure response to exercise: Normal blood pressure response during stress. Heart Rate response to exercise: WNL Chest Pain: No. Arrhythmia: No. ST Change: No. INTERPRETATION Stress EKG Conclusion: Baseline EKG showed sinus rhythm. No ischemic changes at peak stress. No arr hythmias. Imaging Protocol IMAGE PROTOCOL: Rest Tc-99m/stress Tc-99m 1 day Rest: Stress: Viability: Radiopharm.Tc99m PzjghjcyiPn15m Sestamibi [id number] 33mCi Duration 15min. 10min. Img Date 12/12/2019 12/12/2019 Inj-Img [id number]. 60min. Post-Injection Exercise: 1 minute Rest Admin Site:IV - Right HandAdministrator: RT Jocelin (R)(N) Stress Admin Site: IV - Right HandAdministrator: AZALIA Vergara STRESS DATA End Diast. Vol.88.0mlAv. Heart Rate81.0bpm End Syst. Vol.26.0mlCO Index BSA0.0L/min Myocardial Pmgh818.0gEject. Siusbarp02.0% Stress Rates Pk. Fill Rate3.14EDV/secLVtime Pk. Fill 210.05msec Pk. Empty Rate4.46ESV/secLVtime Pk. Yptqc878.90msec 1/3 Pk. Fill1.48EDV/sec Stress Scores Regional WT0.00Summed WT3.00 Regional WM0.00Summed WM5.00 Study quality was good. Left Ventricular size was Normal at Rest and Stress. Lung uptake was . Left Ventricular ejection fraction is 70%. The rest and stress images show normal perfusion, normal contraction and thickening. LV Perf. Quant 17 Seg. SSS2.00 17 Seg. SRS2.00 17 Seg. SDS0.00 Stress Defect Extent (% LAD)0.00Rest Defect Extent (% LAD)4.40Rev. Defect Extent (% LAD)0.00 Stress Defect Extent (% LCX) 7.50Rest Defect Extent (% LCX)16.30Rev. Defect Extent (% LCX)0.00 Stress Defect Extent (% RCA)0.00Rest Defect Extent (% RCA)0.00Rev. Defect Extent (% RCA)0.00 Stress Defect Extent (% MARGRET)3.90Rest Defect Extent (% MARGRET)7.60Rev. Defect Extent (% MARGRET)0.00 Conclusion 1. Treadmill exercise cardioisotope stress test did not show any evidence of ischemia or infarct. 2. Normal left ventricular systolic function with ejection fraction calculated at 70%. 3. Low risk for cardiac events. Signed by : Franklin Lockett, Electronically Approved : 12/12/2019 12:31:01
== END | disposition home or self-care (01) ==
LOC: NM 08:38
PROVIDERS: ATTEND Internal Medicine Cardiovascular Disease
DX: I25.10 Atherosclerotic heart disease of native coronary artery without angina pectoris (principal); I25.2 Old myocardial infarction; Z87.891 Personal history of nicotine dependence
CPT/HCPCS: 78452; 93017; A9500

== ENCOUNTER → 2020-07-09 | Outpatient (CLI) | payer MEDICARE ==
[~2020-07-09] MED LIST changes: -ENAL2.5T PO; +ENAL2.5T9 PO
--- NOTE | 2020-07-09 14:49 | KCIC ---
EXAM: Lumbar spine MRI without contrast. HISTORY: Lower back pain and left lower extremity radiculopathy TECHNIQUE: Multiplanar, multisequence magnetic resonance imaging of the lumbar spine was performed without contrast. COMPARISON: None. FINDINGS: There is mild lumbar dextroscoliosis and hyperlordosis. There is grade 1 anterolisthesis of L4 and L5, measuring 5 mm. There is grade 1 anterolisthesis of L5 on S1, measuring 3 mm. There is 4 mm retrolisthesis of L1 on L2. There is a chronic moderate wedge compression fracture with prominent superior endplate Schmorl's node at L1. No acute or subacute fracture is seen. There is multilevel endplate remodeling and disc desiccation. The conus terminates at T12. At L1-L2, there is a disc bulge and posterior annular tear with endplate remodeling. There is retrolisthesis. There is mild bilateral facet arthropathy. There is mild bilateral foraminal stenosis. At L2-L3, there is a disc bulge and posterior annular tear with right lateral predominant endplate osteophytosis. There is moderate bilateral facet arthropathy. There is hypertrophy of the ligamentum flavum. There is mild to moderate bilateral foraminal stenosis. There is mild central canal stenosis. At L3-L4, there is a disc bulge and endplate remodeling. There is mild bilateral facet arthropathy. There is mild bilateral foraminal stenosis. There is minimal central canal stenosis. At L4-L5, there is a left foraminal disc protrusion and annular tear with 4 mm superior extrusion superimposed on a disc bulge and left lateral predominant endplate osteophytosis. There is moderate right and severe left facet arthropathy with nonspecific fluid within the facet joints. There is hypertrophy of the ligamentum flavum. There is grade 1 anterolisthesis. There is mild right and severe left foraminal stenosis. There is mild central canal stenosis. At L5-S1, there is moderate right facet arthropathy. There is no stenosis. IMPRESSION: 1. Multilevel degenerative change involving the lumbar spine, described in detail above. There is associated mild bilateral foraminal stenosis at L1-L2, mild to moderate bilateral foraminal and mild central canal stenosis at L2-L3, mild bilateral foraminal and minimal central canal stenosis at L3-L4, and mild right and severe left foraminal and mild central canal stenosis at L4-L5. 2. Mild lumbar scoliosis, hyperlordosis and multilevel listhesis. 3. Moderate chronic compression fracture at L1. Electronically signed by: Demetria Akins MD (07/09/2020 2:46 PM) [id number]
== END | disposition home or self-care (01) ==
LOC: EDSEX → KCIC MRI 13:38
PROVIDERS: ATTEND Family Medicine Adult Medicine
DX: M48.061 Spinal stenosis, lumbar region without neurogenic claudication (principal); M47.27 Other spondylosis with radiculopathy, lumbosacral region; M40.46 Postural lordosis, lumbar region; M43.17 Spondylolisthesis, lumbosacral region; M48.56XA Collapsed vertebra, not elsewhere classified, lumbar region, initial encounter for fracture; M51.46 Schmorl's nodes, lumbar region; M25.78 Osteophyte, vertebrae; R29.898 Other symptoms and signs involving the musculoskeletal system
CPT/HCPCS: 72148